=== PATIENT | male | born 1975 | race African-American/Black ===

== ENCOUNTER 2016-05-29 14:02 | Emergency (ER) | payer MEDICAID ==
[2016-05-29 14:43] LABS: ALBUMIN 3.9 g/dL (3.4-5.0); ANION GAP 15.4 mmol/L (8-16); BILIRUBIN - TOTAL 0.2 mg/dL (0.2-1.3); CALCIUM 9.4 mg/dL (8.5-10.1); CARBON DIOXIDE 25.5 mmol/L (21.0-32.0); CREATININE - SERUM 1.2 mg/dL (0.6-1.3); POTASSIUM - SERUM 3.9 mmol/L (3.5-5.1); PROTEIN - SERUM 7.8 g/dL (6.4-8.2)
== END 2016-05-29 17:15 | disposition home or self-care (01) ==
LOC: D.ER 14:02
PROVIDERS: Emergency Medicine
DX: I10 Essential (primary) hypertension (principal); J45.909 Unspecified asthma, uncomplicated; F17.200 Nicotine dependence, unspecified, uncomplicated

== ENCOUNTER 2018-06-23 08:42 | Emergency (ER) | payer SELFPAY ==
[~2018-06-23] VITALS: Ht 175.3 cm; Wt 86.4 kg
[2018-06-23 09:10] VITALS: Ht 175.3 cm; Wt 86.4 kg
[2018-06-23] MEDS ORDERED: NORVASC10 MG PO ×2 (09:12→10:13)
[2018-06-23 10:33] VITALS: BP 164/92
== END 2018-06-23 10:34 | disposition home or self-care (01) ==
LOC: D.ER 08:42
DX: I10 Essential (primary) hypertension (principal); M54.2 Cervicalgia